=== PATIENT | male | born 1950 | race Caucasian/White ===

== ENCOUNTER 2021-05-03 17:05 | Emergency (ER) | payer MEDICARE ==
[2021-05-03] MEDS ORDERED: CLEOCIN300 MG PO (21:27)
[2021-05-03] MEDS ORDERED: NORCO 5-325 TA1 EACH PO (21:27)
== END 2021-05-03 21:40 | disposition home or self-care (01) ==
LOC: FER 17:05
DX: S02.2XXA Fracture of nasal bones, initial encounter for closed fracture (principal); S01.21XA Laceration without foreign body of nose, initial encounter; Z23 Encounter for immunization; W11.XXXA Fall on and from ladder, initial encounter; Y92.009 Unspecified place in unspecified non-institutional (private) residence as the place of occurrence of the external cause
CPT/HCPCS: 70450; 70486; 73110; 90471; 90715